=== PATIENT | female | born 1960 | race African-American/Black ===

== ENCOUNTER 2018-06-19 05:31 | Emergency (ER) | payer MEDICAID, MEDICARE ==
[~2018-06-19] VITALS: Ht 170.2 cm; Wt 81.9 kg
[2018-06-19 05:33] VITALS: BP 132/80
== END 2018-06-19 06:59 | disposition home or self-care (01) ==
LOC: ED 06:54
DX: B34.9 Viral infection, unspecified (principal)
CPT/HCPCS: 71046; 99284

== ENCOUNTER 2018-10-28 18:39 | Emergency (ER) | payer MEDICAID ==
[~2018-10-28] VITALS: Ht 170.2 cm; Wt 80.8 kg
[2018-10-28 19:18] LABS: BASOPHILS # (AUTO) 0.01 x10^3/uL (0-0.1); BASOPHILS % (AUTO) 0 % (0-1); EOSINOPHILS # (AUTO) 0.06 x10^3/uL (0-0.4); EOSINOPHILS % (AUTO) 1 % (1-7); LYMPHOCYTES # (AUTO) 0.75 x10^3/uL (1-3.4); LYMPHOCYTES % (AUTO) 14 % (22-44); MD NO; MEAN CORPUSCULAR HEMOGLOBIN 32.4 pg (27.0-34.8); MEAN CORPUSCULAR HGB CONC 34.3 g/dL (32.4-35.8); MEAN CORPUSCULAR VOLUME 94.5 fL (80-100); MEAN PLATELET VOLUME 7.5 fL (7.4-10.4); MONOCYTES # (AUTO) 0.59 x10^3/uL (0.2-0.8); MONOCYTES % (AUTO) 11 % (2-9); NEUTROPHILS # (AUTO) 3.97 x10^3/uL (1.8-6.8); NEUTROPHILS % (AUTO) 74 % (42-75); PLATELET COUNT 179 x10^3/uL (130-400); RED CELL DISTRIBUTION WIDTH 15.8 % (9.6-15.2)
[2018-10-28 19:24] LABS: ALANINE AMINOTRANSFERASE 30 U/L (12-78); ANION GAP 6 mmol/L (5-15); CALCIUM 8.6 mg/dL (8.5-10.1); CHLORIDE 107 mmol/L (98-107); CREATININE 0.83 mg/dL (0.55-1.02)
[2018-10-28 19:27] LABS: ALKALINE PHOSPHATASE 102 U/L (45-117); BILIRUBIN,TOTAL 0.5 mg/dL (0.2-1.0); TOTAL PROTEIN 7.4 g/dL (6.4-8.2)
--- NOTE | 2018-10-28 19:55 | NUR ---
PT PRESENTS TO ED C/O N/Dx1 DAY. STATES ABLE TO TOLERATE PO INTAKE. STATES DIFFUSE ABD PAIN W/ NO RELIEFx1 DAY. DENIES ANY SYMPTOMS. DENIES FEVERS. DENIES ANY RECENT ABD SURGERIES OR ABX. MONITORING APPLIED. VSS. PROMPTED FOR UA. REFUSES AT THIS TIME.
[2018-10-28 19:58] VITALS: BP 128/70
--- NOTE | 2018-10-28 20:13 | NUR ---
AT BEDSIDE FOR ASSESSMENT.
[2018-10-28] MEDS ORDERED: PROMETHAZINE 25 MG/ML, 1ML IM ONE (20:30)
[2018-10-28] MEDS ORDERED: PROMETHAZINE 25 MG/ML, 1ML ONE (20:31)
--- NOTE | 2018-10-28 20:35 | NUR ---
PT MEDICATED PER MAR. ATTEMPTING UA AT THIS TIME.
--- NOTE | 2018-10-28 20:57 | NUR ---
ALL RESULTS BACK AND PT STATES FEELING BETTER AFTER [employer]. AWAITING MD RECHECK.
[2018-10-28] MEDS ORDERED: KETOROLAC 30 MG/1 ML IM ONE (21:30)
--- NOTE | 2018-10-28 21:33 | NUR ---
PT REFUSING TORADAL PER MAR AT THIS TIME. STATES "I HATE SHOTS. THAT OTHER SHOT MADE ME FEEL BETTER ALREADY." AWARE.
== END 2018-10-28 22:02 | disposition home or self-care (01) ==
LOC: ED 21:01
DX: G43.C1 Periodic headache syndromes in child or adult, intractable (principal); R11.2 Nausea with vomiting, unspecified; R19.7 Diarrhea, unspecified; F17.200 Nicotine dependence, unspecified, uncomplicated; G56.00 Carpal tunnel syndrome, unspecified upper limb
CPT/HCPCS: 36415; 80053; 83690; 85025; 96372; 99283; J2550

== ENCOUNTER → 2019-10-12 | Outpatient (CLI) | payer MEDICARE, MEDICAID ==
[~2019-10-12] MED LIST: [UNRECOGNIZED DRUG - REMARK]
[2019-10-12 09:59] LABS: BASOPHILS # (AUTO) 0.02 x10^3/uL (0-0.1); BASOPHILS % (AUTO) 1 % (0-1); EOSINOPHILS # (AUTO) 0.13 x10^3/uL (0-0.4); EOSINOPHILS % (AUTO) 3 % (1-7); LYMPHOCYTES # (AUTO) 1.58 x10^3/uL (1-3.4); LYMPHOCYTES % (AUTO) 37 % (22-44); MD NO; MEAN CORPUSCULAR HEMOGLOBIN 32.1 pg (27.0-34.8); MEAN CORPUSCULAR VOLUME 97.1 fL (80-100); MEAN PLATELET VOLUME 7.6 fL (7.4-10.4); MONOCYTES # (AUTO) 0.36 x10^3/uL (0.2-0.8); MONOCYTES % (AUTO) 8 % (2-9); NEUTROPHILS # (AUTO) 2.13 x10^3/uL (1.8-6.8); NEUTROPHILS % (AUTO) 51 % (42-75); PLATELET COUNT 205 x10^3/uL (130-400); RED BLOOD COUNT 4.28 x10^6/uL (3.82-5.3); RED CELL DISTRIBUTION WIDTH 14.4 % (9.6-15.2)
[2019-10-12 10:04] LABS: ANION GAP 6 mmol/L (5-15); CALCIUM 8.8 mg/dL (8.5-10.1); CHLORIDE 109 mmol/L (98-107); CREATININE 1.15 mg/dL (0.55-1.02)
[2019-10-12 10:08] LABS: INTERNATIONAL NORMALIZED RATIO 0.96 (0.93-1.1); PROTHROMBIN TIME 10.2 Seconds (9.6-11.5)
== END | disposition home or self-care (01) ==
LOC: STAR 08:56
PROVIDERS: ATTEND Orthopaedic Surgery
DX: Z01.818 Encounter for other preprocedural examination (principal); M16.12 Unilateral primary osteoarthritis, left hip
CPT/HCPCS: 36415; 80048; 83036; 85025; 85610; 85730; 87081; 93005

== ENCOUNTER 2019-10-18 06:31 | Observation (INO) | payer MEDICARE, MEDICAID ==
[~2019-10-18] VITALS: Ht 167.6 cm; Wt 93.7 kg
[~2019-10-18 06:31] MED LIST changes: +ACETAMINOPHEN 650 MG/20.3 ML UDC PO PRN; +BISACODYL 10 MG SUPP PR PRN; +DIPHENHYDRAMINE 25 MG CAPSULE PO PRN; +MAGNESIUM HYDROXIDE 8%, 30ML UDC PO PRN; +ONDANSETRON 2MG/ML, 2ML IV PRN; +ONDANSETRON 4 MG TABLET PO PRN; +OXYcodone IR 5MG TABLET PO PRN; +SENNA/DOCUSATE TABLET PO PRN; +ZOLPIDEM 5MG TABLET PO PRN
[2019-10-18] MEDS ORDERED: EPINEPHRINE 1 MG/ML, 1ML ONE (06:37)
[2019-10-18] MEDS ORDERED: VANCOMYCIN 1,000 MG ONE (06:37)
[2019-10-18] MEDS ORDERED: SODIUM CHLORIDE 0.9% 50 ML ONE (06:37)
[2019-10-18] MEDS ORDERED: KETOROLAC 60 MG/2 ML ONE (06:37)
[2019-10-18] MEDS ORDERED: TRANEXAMIC ACID 100 MG/ML, 10ML ONE ×2 (06:37)
[2019-10-18] MEDS ORDERED: ROPIvacaine/PF 0.5%, 20 ML ONE (06:37)
[2019-10-18] MEDS ORDERED: ROPIvacaine/PF 0.5%, 30 ML ONE (06:37)
[2019-10-18] MEDS ORDERED: LACTATED RINGERS 1,000 ML IV SCH (06:57)
[2019-10-18] MEDS ORDERED: GABAPENTIN 300 MG CAPSULE PO ONE (07:00)
[2019-10-18] MEDS ORDERED: ACETAMINOPHEN 500 MG TABLET PO ONE (07:00)
[2019-10-18] MEDS ORDERED: GABAPENTIN 300 MG CAPSULE ONE (07:02)
[2019-10-18] MEDS: DOCUSATE 100 MG CAPSULE PO SCH ×2 (09:00→21:06)
[2019-10-18] MEDS ORDERED: MIDAZOLAM 1 MG/ML, 2ML ONE (09:39)
[2019-10-18] MEDS ORDERED: FENTANYL PF 250 MCG/5ML ONE (09:40)
[2019-10-18] MEDS ORDERED: ALBUTEROL SULFATE 2.5 MG/3 ML NPPB PRN (10:30)
[2019-10-18] MEDS ORDERED: HYDROmorphone 1 MG/ML, 1ML INJ IVPush PRN (10:30)
[2019-10-18] MEDS ORDERED: PROMETHAZINE 25 MG/ML, 1ML IV PRN (10:30)
[2019-10-18] MEDS ORDERED: OXYcodone 5 MG/5 ML ORAL.SOL UDC PO PRN (10:30)
[2019-10-18] MEDS ORDERED: LABETALOL 5MG/ML, 20ML IV PRN (10:30)
[2019-10-18] MEDS ORDERED: hydrALAzine 20 MG/ML, 1ML IV PRN (10:30)
[2019-10-18] MEDS ORDERED: MEPERIDINE/PF 25MG/0.5ML IVPush PRN (10:30)
[2019-10-18] MEDS ORDERED: MEPERIDINE/PF 25MG/ML,1ML ONE (11:04)
[2019-10-18] MEDS ORDERED: hydrALAzine 20 MG/ML, 1ML ONE (11:04)
[2019-10-18] MEDS ORDERED: DIAZEPAM 5 MG/ML, 2ML ONE (11:29)
[2019-10-18] MEDS ORDERED: FENTANYL PF 100 MCG/2ML ONE (11:29)
[2019-10-18] MEDS: FENTANYL PF 100 MCG/2ML IV PRN ×4 (11:30→11:45)
[2019-10-18] MEDS ORDERED: OXYcodone 5 MG/5 ML ORAL.SOL UDC ONE (11:30)
[2019-10-18] MEDS: DIAZEPAM 5 MG/ML, 2ML IVPush PRN ×2 (11:35→11:55)
[2019-10-18] MEDS ORDERED: HYDROmorphone 1 MG/ML, 1ML INJ ONE (12:00)
[2019-10-18] MEDS ORDERED: PROPOFOL 10 MG/ML, 20ML ONE (12:13)
[2019-10-18] MEDS ORDERED: NEOSTIGMINE 1 MG/ML, 10ML ONE (12:13)
[2019-10-18] MEDS ORDERED: DEXAMETHASONE 4 MG/ML, 1ML ONE (12:13)
[2019-10-18] MEDS ORDERED: ONDANSETRON 2MG/ML, 2ML ONE (12:13)
[2019-10-18] MEDS ORDERED: SUCCINYLCHOLINE 20 MG/ML, 10ML ONE (12:13)
[2019-10-18] MEDS ORDERED: GLYCOPYRROLATE 0.2MG/1ML, 5ML ONE (12:13)
[2019-10-18] MEDS ORDERED: ROCURONIUM 10MG/ML,5ML ONE (12:13)
[2019-10-18] MEDS ORDERED: CEFAZOLIN 1,000 MG ONE (12:13)
[2019-10-18 14:33] VITALS: BP 108/69
[2019-10-18] MEDS: NS + 20MEQ KCL 1,000 ML IV SCH (16:07)
[2019-10-18] MEDS: ASPIRIN 81 MG TABLET EC PO SCH (17:45)
[2019-10-18] MEDS: CEFAZOLIN PMX 2GM/50ML 50 ML IVPB SCH (17:45)
[2019-10-18 20:17] VITALS: BP 110/73
[2019-10-18] MEDS: HYDROcodone/APAP 5/325 TABLET PO PRN (21:07)
[2019-10-19 00:05] VITALS: BP 123/76
[2019-10-19] MEDS: CEFAZOLIN PMX 2GM/50ML 50 ML IVPB SCH (01:40)
[2019-10-19] MEDS: HYDROcodone/APAP 5/325 TABLET PO PRN ×2 (01:41→05:54)
[2019-10-19] MEDS: NS + 20MEQ KCL 1,000 ML IV SCH (03:30)
[2019-10-19 04:02] VITALS: BP 128/76
[2019-10-19] MEDS: ASPIRIN 81 MG TABLET EC PO SCH (05:54)
[2019-10-19] MEDS ORDERED: DEXAMETHASONE 4 MG/ML, 1ML IVPush SCH (06:00)
[2019-10-19 07:15] VITALS: BP 127/77
[2019-10-19] MEDS: DOCUSATE 100 MG CAPSULE PO SCH (08:17)
[2019-10-19] MEDS ORDERED: OXYC5CAP2 PO (08:45)
[2019-10-19] MEDS ORDERED: TRAM50TA2 PO (08:45)
[2019-10-19] MEDS ORDERED: MELO7.5T31 PO (08:46)
== END 2019-10-19 09:54 | disposition home or self-care (01) ==
LOC: OUT 06:31 → 4NE 13:00 → OUT 23:37 → 4NE 23:47 → DCLOUNGE 10-19 09:45
PROVIDERS: ADMIT Orthopaedic Surgery; ATTEND Orthopaedic Surgery
DX: M16.12 Unilateral primary osteoarthritis, left hip (principal); Z87.891 Personal history of nicotine dependence; Z79.899 Other long term (current) drug therapy
CPT/HCPCS: 27130; 36415; 72170; 73523; 76000; 85014; 85018; 96365; 96366; 96375; 97161; 97165; C1713; C1776; G0378; J0171; J0330; J0360; J0690; J1100; J1170; J1885; J2175; J2250; J2405; J2704; J2710; J2795; J3010; J3360; J3370; J3480; J7120

== ENCOUNTER 2021-01-14 17:41 | Emergency (ER) | payer MEDICARE, MEDICAID ==
[~2021-01-14] VITALS: Ht 170.2 cm; Wt 86.0 kg
[~2021-01-14 17:41] MED LIST changes: -ACETAMINOPHEN 650 MG/20.3 ML UDC PO PRN; -BISACODYL 10 MG SUPP PR PRN; -DIPHENHYDRAMINE 25 MG CAPSULE PO PRN; -MAGNESIUM HYDROXIDE 8%, 30ML UDC PO PRN; +MELO7.5T31 PO; -ONDANSETRON 2MG/ML, 2ML IV PRN; -ONDANSETRON 4 MG TABLET PO PRN; +OXYC5CAP2 PO; -OXYcodone IR 5MG TABLET PO PRN; -SENNA/DOCUSATE TABLET PO PRN; +TRAM50TA2 PO; -ZOLPIDEM 5MG TABLET PO PRN
[2021-01-14] MEDS ORDERED: CEFTRIAXONE 1,000 MG IM ONE (18:00)
--- NOTE | 2021-01-14 19:40 | NUR ---
PT TO ROOM FROM [facility]. AMBULATORY WITH STEADY GAIT
[2021-01-14] MEDS ORDERED: CEFTRIAXONE 1,000 MG ONE (19:43)
[2021-01-14] MEDS ORDERED: DOXYCYCLINE 100MG TABLET ONE (19:51)
[2021-01-14 19:55] LABS: WET PREP WBCS MANY (FEW)
[2021-01-14 19:58] LABS: CLUE CELLS NONE SEEN (NONE SEEN)
[2021-01-14] MEDS ORDERED: DOXYCYCLINE 100MG TABLET PO ONE (20:00)
[2021-01-14 20:05] VITALS: BP 112/70
--- NOTE | 2021-01-14 20:05 | NUR ---
PT MEDICATED PER EMAR. TOLERATED WELL. PT DENIES ANY ADDITIONAL NEEDS AT THIS TIME. CALL LIGHT AND PERSONAL BELONGINGS WITHIN REACH.
[2021-01-14] MEDS ORDERED: metroNIDAZOLE 500 MG TABLET ONE (20:29)
[2021-01-14] MEDS ORDERED: metroNIDAZOLE 500 MG TABLET PO ONE (20:30)
--- NOTE | 2021-01-14 21:27 | NUR ---
Patient given discharge instructions and they have confirmed that they understand the instructions. Patient ambulatory with steady gait.
== END 2021-01-14 21:31 | disposition home or self-care (01) ==
LOC: ED 21:00
DX: N89.8 Other specified noninflammatory disorders of vagina (principal); A59.9 Trichomoniasis, unspecified
CPT/HCPCS: 87210; 87491; 87591; 87808; 96372; 99284; J0696